=== PATIENT | male | born 1995 ===

== ENCOUNTER 2016-05-29 11:43 | Emergency (ER) | payer OTHER ==
[2016-05-29 11:48] VITALS: BP 116/70; PULSE 68; RESP 20; TEMP 97.1; O2SAT 100
[2016-05-29 11:50] VITALS: BMI 20.3
--- NOTE | 2016-05-29 12:18 | ED PDOC ---
Upper Extremity Pain/Injury Time Seen by Provider: 05/29/16 12:13 Chief Complaint (Nursing): Abnormal Skin Integrity Chief Complaint (Provider): Right Thumb Laceration History Per: Patient History/Exam Limitations: no limitations Onset/Duration Of Symptoms: Hrs (last night (>12 hours [employer])) Current Symptoms Are (Timing): Still Present Additional Complaint(s): Brent Raza is a 20 year old male, with no pertinent past medical history, who presents to the ED on 05/29/16 for the evaluation of a laceration that he had sustained to his right thumb last night (>12 hours prior to arrival) . Tetanus vaccination status is unknown. PMD: none Past Medical History Reviewed: Historical Data, Nursing Documentation, Vital Signs Vital Signs: Last Vital Signs Temp 97.1 F L 05/29/16 11:48 Pulse 68 05/29/16 11:48 Resp 20 05/29/16 11:48 BP 116/70 05/29/16 11:48 Pulse Ox 100 05/29/16 11:48 - Medical History PMH: No Chronic Diseases - Family History Family History: States: Unknown Family Hx - Immunization History Hx Tetanus Toxoid Vaccination: No - Home Medications Home Medications: Ambulatory Orders Medication Instructions Recorded Ibuprofen [Motrin] 600 mg PO Q6H PRN #15 tab 02/02/15 Acetaminophen [Acetaminophen Extra 2 tab PO Q4 PRN #24 tablet 05/04/15 Strength] Albuterol HFA [Ventolin HFA 90 2 puff IH [id number] PRN #1 inhaler 05/04/15 mcg/actuation (8 g)] Ibuprofen [Motrin] 600 mg PO Q8 PRN #21 tab 05/04/15 Oseltamivir Phosphate [Tamiflu] 1 tab PO BID #9 cap 05/04/15 Cephalexin [Keflex] 500 mg PO BID #20 capsule 05/29/16 - Allergies Allergies/Adverse Reactions: Allergies Allergy/AdvReac Type Severity Reaction Status Date / Time No Known Allergies Allergy Verified 05/29/16 11:48 Review of Systems Musculoskeletal: Positive for: Hand Pain (right thumb laceration) Physical Exam - Reviewed Nursing Documentation Reviewed: Yes Vital Signs Reviewed: Yes - Physical Exam Appears: Positive for: Non-toxic, No Acute Distress Extremity: Positive for: Normal ROM (FROM right thumb), Other (2.0cm laceration noted to medial aspect of right thumb; no active bleeding). Negative for: Deformity Neurologic/Psych: Positive for: Alert, Oriented - ECG O2 Sat by Pulse Oximetry: 100 (RA) Pulse Ox Interpretation: Normal Medical Decision Making Medical Decision Makin:13 Initial Impression: thumb laceration Initial Plan: * TDAP 0.5ml IM As injury occurred >12 hours prior to arrival, unable to repair laceration with sutures. Patient instructed to wash his hands thoroughly in ED, after which steri strips used to better approximate edges of wound. Patient tolerated well with no immediate complications. Scribe Attestation: Documented by Fabiola Arenas, acting as a scribe for Vianca Saleh PA-C. Provider Scribe Attestation: All medical record entries made by the Scribe were at my direction and personally dictated by me. I have reviewed the chart and agree that the record accurately reflects my personal performance of the history, physical exam, medical decision making, and the department course for this patient. I have also personally directed, reviewed, and agree with the discharge instructions and disposition. Disposition - Clinical Impression Clinical Impression: Laceration of thumb - Patient ED Disposition Is Patient to be Admitted: No Counseled Patient/Family Regarding: Diagnosis, Need For Followup, Rx Given - Disposition Referrals: [facility] [Outside] Disposition: Routine/Home Disposition Time: 12:36 Condition: GOOD Additional Instructions: Keep clean and dry. Prescriptions: Cephalexin [Keflex] 500 mg PO BID #20 capsule Instructions: Laceration Without Closure (ED) Print Language: PALAUAN
[2016-05-29] MEDS ORDERED: TDAP Vaccine 0.5 mL Syr IM ONE (12:29)
== END 2016-05-29 12:50 | disposition home or self-care (01) ==
LOC: H.ER 11:43
DX: S61.011A Laceration without foreign body of right thumb without damage to nail, initial encounter (principal); W22.8XXA Striking against or struck by other objects, initial encounter; Y92.89 Other specified places as the place of occurrence of the external cause

== ENCOUNTER 2016-06-20 21:21 | Emergency (ER) | payer OTHER ==
[2016-06-20 21:21] VITALS: BMI 20.3
[2016-06-20 21:44] VITALS: PULSE 76; RESP 18; TEMP 98.4; O2SAT 100
[2016-06-20 21:47] VITALS: BP 117/74
--- NOTE | 2016-06-20 22:16 | ED PDOC ---
HPI: CCC, URI, Sore Throat Time Seen by Provider: 06/20/16 21:48 Chief Complaint (Nursing): Cough, Cold, Congestion History Per: Patient Additional Complaint(s): Pt. states for the past 5 days he's had sneezing, cough, and b/l eye pruritus. Reports that he has not taken any medications. Denies fever, SOB, chest pain, SOB, rash. Past Medical History Reviewed: Historical Data, Nursing Documentation, Vital Signs Vital Signs: Last Vital Signs Temp 98.4 F 06/20/16 21:41 Pulse 76 06/20/16 21:41 Resp 18 06/20/16 21:41 BP 117/74 06/20/16 21:41 Pulse Ox 100 06/20/16 21:41 - Family History Family History: States: No Known Family Hx - Immunization History Hx Tetanus Toxoid Vaccination: No - Home Medications Home Medications: Ambulatory Orders Medication Instructions Recorded Ibuprofen [Motrin] 600 mg PO Q6H PRN #15 tab 02/02/15 Acetaminophen [Acetaminophen Extra 2 tab PO Q4 PRN #24 tablet 05/04/15 Strength] Albuterol HFA [Ventolin HFA 90 2 puff IH [id number] PRN #1 inhaler 05/04/15 mcg/actuation (8 g)] Ibuprofen [Motrin] 600 mg PO Q8 PRN #21 tab 05/04/15 Oseltamivir Phosphate [Tamiflu] 1 tab PO BID #9 cap 05/04/15 Cephalexin [Keflex] 500 mg PO BID #20 capsule 05/29/16 Cetirizine HCl [Children's Zyrtec 10 mg PO DAILY PRN #30 tab 06/20/16 Allergy] Fluticasone Propionate [Flonase] 2 spr NS DAILY PRN #1 bottle 06/20/16 - Allergies Allergies/Adverse Reactions: Allergies Allergy/AdvReac Type Severity Reaction Status Date / Time No Known Allergies Allergy Verified 05/29/16 11:48 Review of Systems ROS Statement: Except As Marked, All Systems Reviewed And Found Negative ENT: Positive for: Nose Congestion Respiratory: Positive for: Cough Physical Exam - Reviewed Nursing Documentation Reviewed: Yes Vital Signs Reviewed: Yes - Physical Exam Appears: Positive for: Well, Non-toxic, No Acute Distress Head Exam: Positive for: ATRAUMATIC, NORMAL INSPECTION, NORMOCEPHALIC Skin: Positive for: Normal Color, Warm. Negative for: Rash Eye Exam: Positive for: EOMI, Normal appearance, PERRL ENT: Positive for: Normal ENT Inspection Neck: Positive for: Normal, Painless ROM Cardiovascular/Chest: Positive for: Regular Rate, Rhythm Respiratory: Positive for: CNT, Normal Breath Sounds Back: Positive for: Normal Inspection Extremity: Positive for: Normal ROM Neurologic/Psych: Positive for: Alert, Oriented - ECG O2 Sat by Pulse Oximetry: 100 Disposition - Clinical Impression Clinical Impression: Hay fever - Patient ED Disposition Is Patient to be Admitted: No - Disposition Disposition Time: 22:16 Condition: STABLE Prescriptions: Cetirizine HCl [Children's Zyrtec Allergy] 10 mg PO DAILY PRN #30 tab PRN Reason: allergies Fluticasone Propionate [Flonase] 2 spr NS DAILY PRN #1 bottle PRN Reason: Allergy Symptoms Instructions: Allergic Rhinitis (ED) Forms: [facility] ED School/Work Excuse Print Language: TUVALUAN
== END 2016-06-20 22:36 | disposition home or self-care (01) ==
LOC: H.ER 21:21
DX: J30.1 Allergic rhinitis due to pollen (principal); J02.9 Acute pharyngitis, unspecified

== ENCOUNTER 2018-01-02 17:20 | Emergency (ER) | payer MEDICAID, OTHER ==
[2018-01-02 17:20] VITALS: BMI 20.3
[2018-01-02 17:44] VITALS: BP 109/66; PULSE 66; RESP 18; TEMP 98.2; O2SAT 99
--- NOTE | 2018-01-02 18:33 | ED PDOC ---
HPI: Back Time Seen by Provider: 01/02/18 17:52 Chief Complaint (Nursing): Back Pain Chief Complaint (Provider): Back Pain History Per: Patient History/Exam Limitations: no limitations Onset/Duration Of Symptoms: Days Current Symptoms Are (Timing): Still Present Quality Of Discomfort: "Pain" Additional Complaint(s): 22 year old male presents to the ER for an evaluation of lower back pain onset for 3 days. Patient took Advil at 5:30pm and he lifts heavy objects at work. Denies trauma, injury, stool or urinary incontinence. Past Medical History Reviewed: Historical Data, Nursing Documentation, Vital Signs Vital Signs: Last Vital Signs Temp 98.2 F 01/02/18 17:42 Pulse 66 01/02/18 17:42 Resp 18 01/02/18 17:42 BP 109/66 01/02/18 17:42 Pulse Ox 99 01/02/18 17:42 - Medical History PMH: No Chronic Diseases - Family History Family History: States: Unknown Family Hx - Social History Current smoker - smoking cessation education provided: No Alcohol: None Drugs: Denies - Immunization History Hx Tetanus Toxoid Vaccination: No - Home Medications Home Medications: Ambulatory Orders Medication Instructions Recorded Ibuprofen [Motrin] 600 mg PO Q6H PRN #15 tab 02/02/15 Acetaminophen [Acetaminophen Extra 2 tab PO Q4 PRN #24 tablet 05/04/15 Strength] Albuterol HFA [Ventolin HFA 90 2 puff [id number] [id number] PRN #1 inhaler 05/04/15 mcg/actuation (8 g)] Ibuprofen [Motrin] 600 mg PO Q8 PRN #21 tab 05/04/15 Oseltamivir Phosphate [Tamiflu] 1 tab PO BID #9 cap 05/04/15 Cephalexin [Keflex] 500 mg PO BID #20 capsule 05/29/16 Cetirizine HCl [Children's Zyrtec 10 mg PO DAILY PRN #30 tab 06/20/16 Allergy] Fluticasone Propionate [Flonase] 2 spr NS DAILY PRN #1 bottle 06/20/16 Cyclobenzaprine [Cyclobenzaprine 10 mg PO TID #20 tab 01/02/18 HCl] Ibuprofen [Motrin] 600 mg PO Q6 #20 tab 01/02/18 - Allergies Allergies/Adverse Reactions: Allergies Allergy/AdvReac Type Severity Reaction Status Date / Time No Known Allergies Allergy Verified 05/29/16 11:48 Review of Systems ROS Statement: Except As Marked, All Systems Reviewed And Found Negative Constitutional: Negative for: Fever, Chills Genitourinary Male: Negative for: Dysuria, Frequency, Incontinence Musculoskeletal: Positive for: Back Pain Physical Exam - Reviewed Nursing Documentation Reviewed: Yes Vital Signs Reviewed: Yes - Physical Exam Appears: Positive for: Well, Non-toxic, No Acute Distress Head Exam: Positive for: ATRAUMATIC, NORMAL INSPECTION, NORMOCEPHALIC Skin: Positive for: Normal Color, Warm, Dry. Negative for: Rash Back: Positive for: Normal Inspection. Negative for: L CVA Tenderness, R CVA Tenderness Neurologic/Psych: Positive for: Alert, Oriented (x3). Negative for: Motor/Sensory Deficits - ECG O2 Sat by Pulse Oximetry: 99 (RA) Pulse Ox Interpretation: Normal Medical Decision Making Medical Decision Making: Medicated with Motrin/Flexeril for pain, repors feeling well on re-eval. Ambulates with steady gait. stable for discharge Disposition - Clinical Impression Clinical Impression: Back pain - Patient ED Disposition Is Patient to be Admitted: No - Disposition Disposition: Routine/Home Disposition Time: 20:04 Condition: STABLE Prescriptions: Cyclobenzaprine [Cyclobenzaprine HCl] 10 mg PO TID #20 tab Ibuprofen [Motrin] 600 mg PO Q6 #20 tab Instructions: Upper Back Pain Forms: [employer] (Finnish) Print Language: FRISIAN
== END 2018-01-02 20:49 | disposition home or self-care (01) ==
LOC: H.ER 17:20
DX: M54.5 Low back pain (principal)